=== PATIENT | male | born 1970 | race American Indian/Alaskan Native ===

== ENCOUNTER 2017-05-27 13:35 | Emergency (ER) | payer SELFPAY ==
[2017-05-27 14:09] VITALS: BP 134/90; PULSE 79; RESP 16; TEMP 98; O2SAT 100; BMI 28.7
[2017-05-27] MEDS ORDERED: DiphenhydrAMINE 12.5 mg/5 ml LIQ UD (5 ml) PO STA (14:39)
--- NOTE | 2017-05-27 14:43 | ED PDOC ---
Arrival/HPI - General Chief Complaint: Abnormal Skin Integrity Time Seen by Provider: 05/27/17 14:39 Historian: Patient - History of Present Illness Narrative History of Present Illness (Text): 05/27/17 14:40 47yo male with PMhx of Sarcodosis who present with one week history of pruritic rash. Notes that the rash resolved with the prednisone he was taking for his Sarcodiosis and started again this morning when ran out. States he is not sure what he is reacting to. Denies new lotion/detergent/food/medication, any new inciting factors. Denies SOB, tongue swelling, any other complaint. Past Medical History - Provider Review Nursing Documentation Reviewed: Yes - Tetanus Immunization Tetanus Immunization: Unknown - Cardiac Hx Pacemaker: No - Pulmonary Hx Respiratory Disorders: No - Neurological Hx Neurological Disorder: No Hx Paralysis: No - HEENT Hx HEENT Disorder: No - Renal Hx Renal Disorder: No - Endocrine/Metabolic Hx Endocrine Disorders: No - Hematological/Oncological Hx Blood Disorders: No Hx Blood Transfusions: No Hx Blood Transfusion Reaction: No - Integumentary Hx Dermatological Disorder: No - Musculoskeletal/Rheumatological Hx Musculoskeletal Disorders: No - Gastrointestinal Hx Gastrointestinal Disorders: Yes Hx Gastritis: Yes Hx Gastroesophageal Reflux: Yes - Genitourinary/Gynecological Hx Genitourinary Disorders: No - Psychiatric Hx Psychophysiologic Disorder: No Hx Emotional Abuse: No Hx Physical Abuse: No Hx Substance Use: No - Surgical History Other/Comment: knee surgery - Anesthesia Hx Anesthesia Reactions: No Hx Malignant Hyperthermia: No - Suicidal Assessment Feels Threatened In Home Enviroment: No Family/Social History - Physician Review Nursing Documentation Reviewed: Yes Family/Social History: Unknown Family HX Smoking Status: Never Smoked Hx Alcohol Use: Yes (WEEKENDS) Hx Substance Use: No Hx Substance Use Treatment: No Allergies/Home Meds Allergies/Adverse Reactions: Allergies No Known Allergies Allergy (Verified 05/27/17 14:09) Review of Systems - Physician Review All systems were reviewed & negative as marked: Yes - Review of Systems Constitutional: Normal Eyes: Normal ENT: Normal Respiratory: Normal Cardiovascular: Normal Gastrointestinal: Normal Genitourinary Male: Normal Musculoskeletal: Normal Skin: Rash, Pruritis Neurological: Normal Endocrine: Normal Hemo/Lymphatic: Normal Psychiatric: Normal Physical Exam Vital Signs Reviewed: Yes Vital Signs Temp Pulse Resp BP Pulse Ox 05/27/17 14:05 98.0 F 79 16 134/90 100 Temperature: Afebrile Blood Pressure: Normal Pulse: Regular Respiratory Rate: Normal Appearance: Positive for: Well-Appearing, Non-Toxic, Comfortable Pain Distress: None Mental Status: Positive for: Alert and Oriented X 3 - Systems Exam Head: Present: Atraumatic, Normocephalic Pupils: Present: PERRL Extroacular Muscles: Present: EOMI Conjunctiva: Present: Normal Mouth: Present: Moist Mucous Membranes Neck: Present: Normal Range of Motion Respiratory/Chest: Present: Clear to Auscultation, Good Air Exchange. No: Respiratory Distress, Accessory Muscle Use Cardiovascular: Present: Regular Rate and Rhythm, Normal S1, S2. No: Murmurs Abdomen: Present: Normal Bowel Sounds. No: Tenderness, Distention, Peritoneal Signs Back: Present: Normal Inspection Upper Extremity: Present: Normal Inspection. No: Cyanosis, Edema Lower Extremity: Present: Normal Inspection. No: Edema Neurological: Present: GCS=15, CN II-XII Intact, Speech Normal Skin: Present: Warm, Dry, Rashes (Hives notes on upper back ), Normal Color Psychiatric: Present: Alert, Oriented x 3, Normal Insight, Normal Concentration Medical Decision Making ED Course and Treatment: 05/28/17 00:23 Pt was not in any distress in ED. He was talking well and controlling his secretion. He was treated and DC home with Prednisone, pepcid and Benadryl. Referred to Herb Counselor/chart collector. - Medication Orders Current Medication Orders: Discontinued Medications Diphenhydramine HCl (Benadryl) 25 mg PO STAT STA Stop: 05/27/17 14:40 Last Admin: 05/27/17 14:45 Dose: 25 mg Famotidine (Pepcid) 20 mg PO STAT STA Stop: 05/27/17 14:40 Last Admin: 05/27/17 14:45 Dose: 20 mg Prednisone (Prednisone Tab) 40 mg PO STAT STA Stop: 05/27/17 14:41 Last Admin: 05/27/17 14:45 Dose: 40 mg Disposition/Present on Arrival - Present on Arrival Any Indicators Present on Arrival: No History of DVT/PE: No History of Uncontrolled Diabetes: No Urinary Catheter: No History of Decub. Ulcer: No History Surgical Site Infection Following: None - Disposition Have Diagnosis and Disposition been Completed?: Yes Diagnosis: Allergic reaction Disposition: HOME/ ROUTINE Disposition Time: 14:45 Patient Plan: Discharge Condition: STABLE Discharge Instructions (ExitCare): Hives Additional Instructions: Follow up with a Herb Counselor/Individual Pension Consultant Return to ED for any new or worsening symptoms Prescriptions: DiphenhydrAMINE [Benadryl] 25 mg PO Q4 #30 cap Famotidine [Pepcid] 20 mg PO DAILY #8 tab predniSONE [Prednisone] 20 mg PO BID #8 tab Referrals: Tristan aWre MD [Staff Provider] - Follow up with primary Forms: [employer] (Latvian)
== END 2017-05-27 14:43 | disposition home or self-care (01) ==
LOC: ED 13:35
DX: T78.40XA Allergy, unspecified, initial encounter (principal); X58.XXXA Exposure to other specified factors, initial encounter

== ENCOUNTER 2018-05-05 15:29 | Emergency (ER) | payer OTHER ==
[2018-05-05 15:42] VITALS: BMI 27.9
[2018-05-05 15:45] VITALS: BP 155/100; PULSE 87; RESP 18; TEMP 98.5; O2SAT 100
[2018-05-05] MEDS ORDERED: Oxycodone/Acetaminophen 5/325 mg Tab PO STA ×2 (16:14→17:51)
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
--- NOTE | 2018-05-05 17:58 | RAD ---
Date of service: 05/05/2018 PROCEDURE: Left Knee Radiographs. HISTORY: Pain. COMPARISON: Comparison is made with the previous study dated 08/08/2015 FINDINGS: BONES: Normal. No fracture. JOINTS: Normal. No osteoarthritis. JOINT EFFUSION: None. OTHER FINDINGS: There is interval appearance of well corticated ossicles of versus soft tissue calcification lateral to the knee adjacent to the lateral femoral condyle since the previous exam. There is a soft tissue swelling seen at the left knee. IMPRESSION: Suspicious for soft tissue calcification versus avulsion fracture adjacent to the lateral femoral condyle. If clinically warranted further assessment by MRI may be obtained.
--- NOTE | 2018-05-05 17:59 | RAD ---
Date of service: 05/05/2018 PROCEDURE: Left Ankle Radiographs. HISTORY: r/o fracture COMPARISON: None available. FINDINGS: BONES: Normal. No fracture. JOINTS: Normal. No osteoarthritis. Ankle mortise maintained. Talar dome intact SOFT TISSUES: Normal. OTHER FINDINGS: None. IMPRESSION: No evidence of acute fracture or dislocation.
--- NOTE | 2018-05-07 12:13 | RAD ---
Date of service: 05/05/2018 PROCEDURE: Radiographs of the left tibia and fibula. HISTORY: r/o fracture COMPARISON: None available. TECHNIQUE: Frontal and lateral views obtained. FINDINGS: BONES: No fracture or destructive lesion. JOINT SPACES: Unremarkable. OTHER FINDINGS: None. IMPRESSION: No radiographic evidence of acute fracture or dislocation.
== END 2018-05-05 19:33 | disposition home or self-care (01) ==
LOC: ED 15:29
DX: S72.422A Displaced fracture of lateral condyle of left femur, initial encounter for closed fracture (principal); W23.0XXA Caught, crushed, jammed, or pinched between moving objects, initial encounter; Y99.0 Civilian activity done for income or pay